=== PATIENT | female | born 1990 | race Caucasian/White ===

== ENCOUNTER 2016-05-07 21:57 | Emergency (ER) | payer OTHER ==
[2016-05-07 22:08] VITALS: RESP 20; TEMP 98.1
[2016-05-07] MEDS ORDERED: IBUPROFEN 200 MG TAB PO ONE (22:24)
[2016-05-07] MEDS ORDERED: ACETAMINOPHEN 325 MG TAB PO ONE (22:26)
--- NOTE | 2016-05-07 22:29 | UCPHY ---
H & P Time Seen by Provider: 05/07/16 22:11 Patient Type: New HPI/ROS: This patient complains of left lateral chest pain worse with movement. She describes rib tenderness the left lateral ribs associated with this. She reports that the symptoms started tonight shortly after eating food. 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 She has not had any medications for the symptoms prior to arrival. ROS: No fevers or other constitutional symptoms. HEENT: Minimal scratchy throat and coryza recently. Pulmonary: No pleuritic pain. She does have rib pain when she takes a deep breath and she points the same area of rib tenderness as the source of pain. She does recall any injuries to the area. However, her counseling department chair reports that she is very active person. She has some anxiety about the symptoms and felt slightly lightheaded prior to arrival the symptoms are now improving. 10 point ROS is otherwise negative. Past Medical/Surgical History: IV drug abuse with last use 45 days ago. Again she is currently in inpatient rehab. Previous episode of urosepsis by her description urine half ago. Family history is negative for DVT or PE Smoking Status: Current every day smoker Physical Exam: Vital signs are normal exception of a pulse of 105. Her counseling department chair reports that she has had tachycardia ever since arrival to the inpatient rehab. This is about her baseline pulse is per counselor. General Appearance: Alert, no distress. Eyes: Pupils equal and round no pallor or injection. ENT, Mouth: Mucous membranes moist. Nose: Clear oropharynx: No erythema or exudates. No dysphonia. Neck: Supple Respiratory: There are no retractions, lungs are clear to auscultation. She has left lateral rib tenderness that reproduces her symptoms I appreciate no crepitance. There is no bruising, abrasions, skin erythema or other abnormal findings besides the tenderness Cardiovascular: Borderline tachycardia. Appreciate no murmur gallop or rub. No splinter hemorrhages in fingernail beds. Gastrointestinal: Abdomen is soft and nontender, no masses, bowel sounds normal. Neurological: Alert with no focal deficits Skin: Warm and dry, no rashes. Musculoskeletal: Neck is supple nontender. Extremities are symmetrical, full range of motion. No calf swelling or tenderness Psychiatric: Mood and affect normal DIFFERENTIAL DIAGNOSIS: After history and physical exam differential diagnosis was considered for intercostal muscle strain, costochondritis, rib contusion, doubt PE GERD with esophageal muscle spasm Constitutional: Initial Vital Signs Temperature (C) 36.7 C 05/07/16 22:03 Heart Rate 105 H 05/07/16 22:03 Respiratory Rate 20 05/07/16 22:03 Blood Pressure 140/75 H 05/07/16 22:03 O2 Sat (%) 98 05/07/16 22:03 O2 Delivery Mode Room Air Allergies/Adverse Reactions: nitrofurantoin [From Macrobid] Allergy (Verified 05/07/16 22:03) nitrofurantoin macrocrystalline [From Macrobid] Allergy (Verified 05/07/16 22:03 ) Sulfa (Sulfonamide Antibiotics) Allergy (Verified 05/07/16 22:02) Home Medications: Medication Instructions Recorded Probiotic 05/07/16 MDM/Departure - [facility] ED Course/Re-evaluation: Given this patient's reproducible pain/tenderness on exam and well clinical appearance without of fever I do not think she has pneumonia, endocarditis, PE rather, findings are consistent with musculoskeletal chest pain. He gave her appropriate precautions to go to the emergency department should she develop significant dyspnea, fevers or other concerns. Ibuprofen Tylenol. She report nausea thereafter treated with Zofran - Depart Disposition: Home, Routine, Self-Care Clinical Impression: Musculoskeletal chest pain Condition: Good Instructions: Chest Wall Pain (ED) Additional Instructions: Diagnosis: Musculoskeletal chest wall pain Plan: Ibuprofen-600 mg per 6 hours and Tylenol 650-1000 mg per 4 hours to 3 times a day as needed for pain control. Symptoms should improve over the next 3 days to 14 days. Return here to the emergency department if he develops fevers, coughing, trouble breathing or other concerns. Referrals: Unknown,Unknown [Primary Care Provider] - As per Instructions - PQRS PQRS Measurement: NA
[2016-05-07] MEDS ORDERED: ONDANSETRON 4MG PREPACK#2 BTL TAKEHOME ONE (22:37)
[2016-05-07] MEDS ORDERED: ONDANSETRON DISINTEGRATING 4 MG TAB PO ONE (22:37)
[2016-05-07] MEDS ORDERED: ONDANSETRON DISINTEGRATING 4 MG TAB ONE (22:38)
[2016-05-07 23:03] VITALS: BP 135/87; PULSE 102; O2SAT 97
== END 2016-05-07 22:57 | disposition home or self-care (01) ==
LOC: CED 21:57
DX: R07.89 Other chest pain (principal); F17.210 Nicotine dependence, cigarettes, uncomplicated
CPT/HCPCS: G0463-PO

== ENCOUNTER 2016-05-08 18:33 | Emergency (ER) | payer OTHER ==
[2016-05-08 18:41] VITALS: RESP 18; TEMP 97.7
--- NOTE | 2016-05-08 19:16 | UCPHY ---
H & P Time Seen by Provider: 05/08/16 18:44 Patient Type: Established HPI/ROS: CHIEF COMPLAINT: Abdominal pain HISTORY OF PRESENT ILLNESS: The patient is a 25 year old female presenting with worsening left lateral chest pain, seen yesterday for same. The patient was seen here yesterday for the same complaint. She was diagnosed with musculoskeletal pain, though as is often the complaint, there was no ppt. The patient returns today because her pain started to spread throughout the day , to the lower right chest as well as moved to the left upper quadrant and radiates across the upper abdomen. She took Ibuprofen earlier today, but found no relief. The patient has had a normal bowel movement every day recently. She feels like her abdomen is more firm than usual. She has experienced constipation twice in the past, but states her pain feels different. She notes some calf pain and tightness, but only noted when examined head to toe today. She denies shortness of breath or dyspnea. Her last menstrual period was at the beginning of April, it was normal at that time. The patient has a copper IUD in place, no horomone.. She is a daily cigarette smoker. A1. Admission to hospital for Septicemia in - if cutaneous as she has hx of IVDA, though no abscess at AC needed draingin. In revocery from Methapmetamine IVDA, about day 32 of 90 dya program. Risk Factors for DVT/PE: Prior DVT/PE: No Smoking: Yes Immobility: No Confinement to bed: Yes, but 5 months ago with sepsis Splint or cast on leg: No Hormone Therapy: No Surgery: No No fam Hx of hypercoaguable syndrome. REVIEW OF SYSTEMS: Constitutional: No fever, no chills. Eyes: No discharge. ENT: No sore throat. Cardiovascular: Chest pain, no palpitations. Respiratory: No cough, shortness of breath, or wheezing. Gastrointestinal: No nausea vomiting or diarrhea. Genitourinary: No hematuria or frequency. Musculoskeletal: No back pain. No calf pain until tenderness elicited. Skin: No rashes. Neurological: No headache. 10 point ROS otherwise negative Past Medical/Surgical History: Sepsis last year due to kidney infection. Former IV drug user. Social History: [facility] at [facility]. Daily cigarette smoker. In revocery from Methapmetamine IVDA, about day 32 of 90 dya program. Smoking Status: Current every day smoker Physical Exam: General Appearance: Alert, no distress. Afebrile. Normal phonation. No respiratory distress. Eyes: Pupils equal and round no pallor or injection. No icterus ENT, Mouth: Mucous membranes moist. Pharynx without erythema or exudate. TM Clear. Neck: No adenopathy. Supple. No JVD. Trachea in midline. Respiratory: Diminished breath sounds bilaterally. Tender to the chest wall Left > right anteriorly. Cardiovascular: Regular rate and rhythm. Abdomen:.Mildly distended, tympanitic, mild tenderness right lower quadrant. No guarding or rebound. Neurological: Ox3. No motor weakness. Sensation intact. Gait nl. Skin: Warm and dry, no rashes. Musculoskeletal: No joint swelling. Extremities: No edema. tender to the left calf without edema. Psychiatric: Normal affect. Patient is oriented X 3, there is no agitation. Constitutional: Initial Vital Signs Temperature (C) 36.5 C 05/08/16 18:38 Heart Rate 101 H 05/08/16 18:38 Respiratory Rate 18 05/08/16 18:38 Blood Pressure 123/67 H 05/08/16 18:38 O2 Sat (%) 99 05/08/16 18:38 O2 Delivery Mode Room Air Allergies/Adverse Reactions: nitrofurantoin [From Macrobid] Allergy (Verified 05/07/16 22:03) nitrofurantoin macrocrystalline [From Macrobid] Allergy (Verified 05/07/16 22:03 ) Sulfa (Sulfonamide Antibiotics) Allergy (Verified 05/07/16 22:02) Home Medications: Medication Instructions Recorded Probiotic 05/07/16 Acetaminophen [Arthritis Pain 1,300 mg PO TID PRN #60 tablet.er 05/08/16 Relief] Cephalexin [Keflex (*)] 500 mg PO Q6H #15 cap 05/08/16 Fluconazole [Diflucan (*)] 150 mg PO ONCE #2 tab 05/08/16 Ibuprofen [Motrin (*)] 600 mg PO TID #30 tab 05/08/16 Polyethylene Glycol 3350 [Miralax 17 gm PO DAILY #14 pkt 05/08/16 17 gm (*)] Psyllium Husk [Metamucil] 660 gm PO DAILY #30 powder 05/08/16 Medical Decision Making - Diagnostics Imaging: Study: X-ray of the chest was obtained. Results: Negative. Images were interpreted by the radiologist, Dr. Bonner. I viewed the images myself on the PACS system. Study: X-ray of the abdomen was obtained. Results: Constipation. Images were interpreted by the radiologist, Dr. Bonner. I viewed the images myself on the PACS system. CT of the Chest to r/o PE: Neg per DR. Bonner, d/w Dr. Bonner, films reviewed by me. ED Course/Re-evaluation: Patient presents with sudden onset of chest pain. She is a current everyday smoker and has an IUD in place. She complains of calf soreness and tightness. Due to risk factors and symptoms I will check for infection and blood clot. CBC , UA, and D-dimer were ordered. UA is positive for leukocyte esterase. D-dimer is slightly elevated as well. Plan to order CT chest to rule out PE. Patient does not complain of any lower extremity pain or swelling, just tenderness on my exam. Ultimatley study was neg. BOwel regimne and pain medications reviewed with pt. Differential Diagnosis: Differential diagnosis includes but is not limited to the following: Pneumothorax, pleurisy, pulmonary embolus, aortic dissection, anxiety, muscle strain, constipation, splenomegaly, endocartidits. percarditis.. Unalble to apply PERC Rule as she is tachycardic Once D dimer + in view of calf tenderness on the left, recommended CT of chest, warned. [place] CT study negative. - Data Points Laboratory Results: Laboratory Results 05/08/16 19:49 Microbiology Results: MICROBIOLOGY 05/08/16 19:20 Urine,Clean Catch Urine Culture - Final Two [place] Types Strep Agalactiae Group B Medications Given: Discontinued Medications Acetaminophen (Tylenol) 650 mg PO EDNOW ONE Stop: 05/08/16 23:31 Last Admin: 05/08/16 23:41 Dose: 650 mg Cephalexin (Keflex 500 Mg Prepack#4) 1 btl TAKEHOME EDNOW ONE PRN Reason: Protocol Stop: 05/08/16 23:51 Last Admin: 05/08/16 23:58 Dose: 1 btl Ibuprofen (Motrin) 600 mg PO EDNOW ONE Stop: 05/08/16 23:31 Last Admin: 05/08/16 23:41 Dose: 600 mg Departure - Departure Disposition: Home, Routine, Self-Care Clinical Impression: Chest wall pain Abdominal pain Qualifiers: Abdominal location: left upper quadrant Qualified Code(s): R10.12 - Left upper quadrant pain Constipation Qualifiers: Constipation type: unspecified constipation type Qualified Code(s): K59.00 - Constipation, unspecified Condition: Good Instructions: Cephalexin (By mouth), Constipation (ED), High Fiber Diet (ED), Acute Abdominal Pain (ED), Chest Wall Pain (ED) Additional Instructions: You have been referred to the supervisor reclamation primary care physician. If you continue to have symptoms, please followup with the physician for further evaluation. For your pain take combination of ibuprofen 600 mg and Tylenol extended-release 1300 mg, every 8 hours Nonetheless, take ibuprofen 600 mg three times daily for 10 days to help the tissues heal Keflex for the urinary tract infection 5 days Diflucan 1 dose tomorrow and then 1 dose in 1 week Referrals: Evelio Mendoza MD [Medical Doctor] - As per Instructions Prescriptions: Acetaminophen [Arthritis Pain Relief] 1,300 mg PO TID PRN #60 tablet.er PRN Reason: Pain, Moderate Cephalexin [Keflex (*)] 500 mg PO Q6H #15 cap Fluconazole [Diflucan (*)] 150 mg PO ONCE #2 tab Ibuprofen [Motrin (*)] 600 mg PO TID #30 tab Polyethylene Glycol 3350 [Miralax 17 gm (*)] 17 gm PO DAILY #14 pkt Psyllium Husk [Metamucil] 660 gm PO DAILY #30 powder - PQRS PQRS Measurement: NA Report Scribed for: Salvador Morris Report Scribed by: Shayna Lyles Date of Report: 05/08/16 Time of Report: 19:34
[2016-05-08 19:32] LABS: COLOR YELLOW; LEUKOCYTE ESTERASE,URINE 2+ (NEGATIVE); NITRITE,URINE NEGATIVE (NEGATIVE)
[2016-05-08 19:44] LABS: BACTERIA 2+ /hpf (NONE SEEN); RBC,URINE 0-1 /hpf (0-3); WBC,URINE 15-25 /hpf (0-3)
[2016-05-08 20:00] LABS: % IMMATURE GRANULYOCYTES 0.3 % (0.0-1.1); ABSOLUTE IMMATURE GRANULOCYTES 0.03 10^3/uL (0.00-0.10); ADD DIFF? NO; ADD MORPH? NO; ADD SCAN? NO; ATYPICAL LYMPHOCYTE FLAG 60 (0-99); FRAGMENT RBC FLAG 0 (0-99); HEMATOCRIT 33.2 % (38.0-47.0); HEMOGLOBIN 10.7 g/dL (12.6-16.3); LEFT SHIFT FLG 0 (0-99); LIPEMIA HEMOLYSIS FLAG 80 (0-99); MEAN CELL HEMOGLOBIN 24.2 pg (27.9-34.1); MEAN CELL HEMOGLOBIN CONCENTR. 32.2 g/dL (32.4-36.7); MEAN CELL VOLUME 75.1 fL (81.5-99.8); MEAN PLATELET VOLUME 8.9 fL (8.7-11.7); PLATELET CLUMPS FLAG 0 (0-99); PLATELET COUNT 380 10^3/uL (150-400); RED BLOOD CELL COUNT 4.42 10^6/uL (4.18-5.33); RED CELL DISTRIBUTION WIDTH 14.4 % (11.5-15.2)
[2016-05-08] MEDS ORDERED: IOPAMIDOL (ISOVUE-370) 150 ML BTL IV ONE (22:09)
[2016-05-08] MEDS ORDERED: IBUPROFEN 600 MG TAB PO ONE (23:30)
[2016-05-08] MEDS ORDERED: ACETAMINOPHEN 325 MG TAB PO ONE (23:30)
[2016-05-08 23:46] VITALS: BP 101/78; PULSE 97; O2SAT 97
[2016-05-08] MEDS ORDERED: CEPHALEXIN 500MG PREPACK#4 BTL TAKEHOME ONE (23:50)
== END 2016-05-08 23:58 | disposition home or self-care (01) ==
LOC: CED 18:33
DX: R10.12 Left upper quadrant pain (principal); K59.00 Constipation, unspecified; Z72.0 Tobacco use
CPT/HCPCS: 71020-PO; 71275-PO; 74000-PO; 81003-PO; 81015-PO; 81025-PO; 85025-PO; 85378-PO; 99215-PO; G0463-PO; Q9967

== ENCOUNTER → 2016-06-09 | Outpatient (CLI) | payer OTHER | LOC: CIMAGING 13:45 | PROVIDERS: ATTEND Orthopaedic Surgery Hand Surgery | DX: S42.301K Unspecified fracture of shaft of humerus, right arm, subsequent encounter for fracture with nonunion (principal) | CPT/HCPCS: 73200-PO ==